=== PATIENT | male | born 1990 | race Caucasian/White ===

== ENCOUNTER 2018-03-04 18:24 | Emergency (ER) | payer OTHER ==
[~2018-03-04] VITALS: Ht 190.5 cm; Wt 130.0 kg
[2018-03-04 18:29] VITALS: BP 104/77; PULSE 80; RESP 22; TEMP 97.5; O2SAT 98
[2018-03-04 18:37] VITALS: O2SAT 100
--- NOTE | 2018-03-04 18:38 | PD ---
HPI Chief Complaint: Chest Pain Time Seen by Provider: 18:29 Travel History International Travel<30 days: No Contact w/Intl Traveler<30days: No Traveled to known affect area: No History of Present Illness HPI Patient gives a history that while he was working he developed sharp substernal chest pain had radiated to right shoulder blade area. States that the pain has been described as stabbing, sharp, 8 out of 10, sustained for the last 35 minutes and still present. She denies any aggravating or alleviating factors. Patient denies any associated factors such as fever, cough, runny nose, sore throat, rash, neck pain, back pain, flank pain or abdominal pain. Primary care is Dr. Osullivan Denies any allergies to medications States the only past surgical history is orthopedic repair to left forearm as well as tonsillectomy and adenoidectomy PFS Past Medical History Anxiety: Yes Influenza Vaccination: No Past Surgical History Oral Surgery: Yes Social History Alcohol Use: Yes (5 DRINKS FEW DAYS PER WEEK) Tobacco Use: Yes Substance Use: No Allergies-Medications (Allergen,Severity, Reaction): Coded Allergies: No Known Allergies (Unverified , 03/04/18) Reported Meds & Prescriptions Reported Meds & Active Scripts Active No Active Prescriptions or Reported Medications Review of Systems General / Constitutional: No: Fever Eyes: No: Visual changes HENT: No: Headaches Cardiovascular: Positive: Chest Pain or Discomfort Respiratory: No: Shortness of Breath Gastrointestinal: No: Abdominal Pain Genitourinary: No: Dysuria Musculoskeletal: No: Pain Skin: No Rash Neurologic: No: Weakness Psychiatric: No: Depression Endocrine: No: Polydipsia Hematologic/Lymphatic: No: Easy Bruising Physical Exam Narrative GENERAL: SKIN: Warm and dry. HEAD: Atraumatic. Normocephalic. EYES: Pupils equal and round. No scleral icterus. No injection or drainage. ENT: No nasal bleeding or discharge. Mucous membranes pink and moist. NECK: Trachea midline. No JVD. CARDIOVASCULAR: Regular rate and rhythm. RESPIRATORY: No accessory muscle use. Clear to auscultation. Breath sounds equal bilaterally. GASTROINTESTINAL: Abdomen soft, RUQ tender to percussion and palpation, nondistended. MUSCULOSKELETAL: Extremities without clubbing, cyanosis, or edema. No obvious deformities. NEUROLOGICAL: Awake and alert. No obvious cranial nerve deficits. Motor grossly within normal limits. Five out of 5 muscle strength in the arms and legs. Normal speech. PSYCHIATRIC: Appropriate mood and affect; insight and judgment normal. Data Data Last Documented VS Vital Signs Date Time Temp Pulse Resp B/P (MAP) Pulse Ox O2 Delivery O2 Flow Rate FiO2 03/04/18 19:05 18 03/04/18 19:00 66 97 Room Air 03/04/18 19:00 139/67 (91) 03/04/18 18:29 97.5 Orders Orders Electrocardiogram (03/04/18:) B-Type Natriuretic Peptide (03/04/18:33) Ckmb (Isoenzyme) Profile (03/04/18:33) Complete Blood Count With Diff (03/04/18) Comprehensive Metabolic Panel (03/04/18) D-Dimer (03/04/18:) Prothrombin Time / Inr (Pt) (03/04/18:) Act Partial Throm Time (Ptt) (03/04/18:) Troponin I (03/04/18:) Lipase (03/04/18:33) Chest, Single Ap (03/04/18:33) Ecg Monitoring (03/04/18:) Bilateral Bp Monitoring (03/04/18:) Iv Access Insert/Monitor (03/04/18) Oximetry (03/04/18:) Oxygen Administration (03/04/18:33) Sodium Chlorid 0.9% 500 Ml Inj (Ns 500 M (03/04/18 18:45) Morphine Inj (Morphine Inj) (03/04/18:45) Ondansetron Inj (Zofran Inj) (03/04/18 18:45) Ct Abd/Pel W/O Iv Contrast (03/04/18 18:39) Sodium Chloride 0.9% Flush (Ns Flush) (03/04/18:45) CKMB (03/04/18:45) CKMB% (03/04/18 18:45) Labs Laboratory Tests Test 03/04/18 18:45 White Blood Count 7.5 TH/MM3 Red Blood Count 5.05 MIL/MM3 Hemoglobin 15.9 GM/DL Hematocrit 47.7 % Mean Corpuscular Volume 94.3 FL Mean Corpuscular Hemoglobin 31.5 PG Mean Corpuscular Hemoglobin Concent 33.4 % Red Cell Distribution Width 12.4 % Platelet Count 211 TH/MM3 Mean Platelet Volume 9.8 FL Neutrophils (%) (Auto) 66.5 % Lymphocytes (%) (Auto) 22.9 % Monocytes (%) (Auto) 5.3 % Eosinophils (%) (Auto) 4.5 % Basophils (%) (Auto) 0.8 % Neutrophils # (Auto) 5.0 TH/MM3 Lymphocytes # (Auto) 1.7 TH/MM3 Monocytes # (Auto) 0.4 TH/MM3 Eosinophils # (Auto) 0.3 TH/MM3 Basophils # (Auto) 0.1 TH/MM3 CBC Comment DIFF FINAL Differential Comment Prothrombin Time 10.6 SEC Prothromb Time International Ratio 1.0 RATIO Activated Partial Thromboplast Time 27.5 SEC D-Dimer Quantitative (PE/DVT) 0.36 MG/L FEU Blood Urea Nitrogen 14 MG/DL Creatinine 1.10 MG/DL Random Glucose 94 MG/DL Total Protein 7.3 GM/DL Albumin 4.0 GM/DL Calcium Level 9.0 MG/DL Alkaline Phosphatase 87 U/L Aspartate Amino Transf (AST/SGOT) 28 U/L Alanine Aminotransferase (ALT/SGPT) 52 U/L Total Bilirubin 0.4 MG/DL Sodium Level 140 MEQ/L Potassium Level 3.8 MEQ/L Chloride Level 107 MEQ/L Carbon Dioxide Level 26.7 MEQ/L Anion Gap 6 MEQ/L Estimat Glomerular Filtration Rate 80 ML/MIN Total Creatine Kinase 367 U/L Creatine Kinase MB 3.9 NG/ML Creatine Kinase MB % 1.1 % Troponin I LESS THAN 0.02 NG/ML B-Type Natriuretic Peptide 9 PG/ML Lipase 75 U/L MDM Medical Decision Making Medical Screen Exam Complete: Yes Emergency Medical Condition: Yes Medical Record Reviewed: Yes Interpretation(s) EKG shows normal sinus rhythm, 77 bpm, normal intervals, no evidence of any STEMI pattern noted. Differential Diagnosis Atypical STEMI versus pancreatitis versus biliary colic versus hepatitis Narrative Course CBC shows no anemia, no leukocytosis, normal platelet count. No left shift Coagulation profile is within normal limits, d-dimer is negative Electrolytes are all within normal limits, normal kidney liver and pancreatic enzymes. First set of cardiac enzymes negative, negative or normal rather beta natruretic peptide Chest x-ray read by radiologist as no acute disease CT is read by radiologist as normal examination, no evidence of pulmonary Edema , pleural effusion, pericardial effusion. CT also does not show any evidence of small bowel obstruction, ileus, any free fluid any free air and no evidence of any pericholecystic fluid to suggest cholecystitis. Patient is symptom-free after receiving a small dose of morphine, he does not have any further pain. Diagnosis Primary Impression: Atypical chest pain Referrals: [facility] For further cardiac risk stratification. Patient Instructions: Chest Pain (ED), General Instructions Scripts Tramadol (Ultram) 50 Mg Tab 50 MG PO Q8H Y for PAIN, #15 TAB 0 Refills Prov: Johann Patton MD 03/04/18 Disposition: 01 DISCHARGE HOME Condition: Stable Johann Patton MD Mar 04, 2018 18:38
[2018-03-04 18:40] VITALS: BP_SYST 162; BP_SYST 178; BP_DIAS 71; BP_DIAS 78
[2018-03-04] MEDS ORDERED: SODIUM CHLORID 0.9% 500 ML INJ 500 ML IV ONE (18:45)
[2018-03-04] MEDS ORDERED: ONDANSETRON HCL 4 MG/2 ML VIAL IVP ONE (18:45)
[2018-03-04] MEDS ORDERED: MORPHINE SULFATE 4 MG/ML INJ IV PUSH ONE (18:45)
[2018-03-04] MEDS ORDERED: SODIUM CHLORIDE 0.9% FLUSH 10 ML FLUSH IV FLUSH PRN (18:45)
[2018-03-04 18:50] LABS: BASOPHIL # 0.1 TH/MM3 (0-0.2); BASOPHIL % 0.8 % (0.0-2.0); EOSINOPHIL # 0.3 TH/MM3 (0-0.4); EOSINOPHIL % 4.5 % (0.0-4.0); HEMATOCRIT 47.7 % (39.0-51.0); HEMOGLOBIN 15.9 GM/DL (13.0-17.0); LYMPH % 22.9 % (9.0-44.0); LYMPHOCYTE # 1.7 TH/MM3 (1.0-4.8); MEAN CELL VOLUME 94.3 FL (80.0-100.0); MEAN CORPUSCULAR HEMOGLOBIN 31.5 PG (27.0-34.0); MEAN CORPUSCULAR HGB CONC 33.4 % (32.0-36.0); MEAN PLATELET VOLUME 9.8 FL (7.0-11.0); MONO % 5.3 % (0.0-8.0); MONOCYTE # 0.4 TH/MM3 (0-0.9); NEUT % 66.5 % (16.0-70.0); PLATELET COUNT 211 TH/MM3 (150-450); RED BLOOD COUNT 5.05 MIL/MM3 (4.50-5.90); RED CELL DISTRIBUTION WIDTH 12.4 % (11.6-17.2); WHITE BLOOD COUNT 7.5 TH/MM3 (4.0-11.0)
[2018-03-04 18:58] LABS: CHLORIDE 107 MEQ/L (98-107); SODIUM (NA) 140 MEQ/L (136-145)
[2018-03-04 19:00] VITALS: BP 139/67; PULSE 66; RESP 18; O2SAT 97
[2018-03-04 19:02] LABS: BICARBONATE 26.7 MEQ/L (21.0-32.0); BLOOD UREA NITROGEN 14 MG/DL (7-18); GLUCOSE,RANDOM 94 MG/DL (74-106)
[2018-03-04 19:05] VITALS: RESP 18
[2018-03-04 19:05] LABS: ALT (GPT) 52 U/L (12-78); AST (GOT) 28 U/L (15-37); GLOMERULAR FILTRATION RATE 80 ML/MIN (>89); PROTHROMBIN TIME - PATIENT 10.6 SEC (9.8-11.6)
[2018-03-04 19:06] LABS: D-DIMER 0.36 MG/L FEU (0.00-0.50); TOTAL BILIRUBIN ADULT 0.4 MG/DL (0.2-1.0); TOTAL PROTEIN 7.3 GM/DL (6.4-8.2)
[2018-03-04 19:08] LABS: ALKALINE PHOSPHATASE 87 U/L (45-117)
[2018-03-04 19:10] LABS: TROPONIN I LESS THAN 0.02 NG/ML (0.02-0.05)
--- NOTE | 2018-03-04 19:15 | RADRPT ---
EXAM DATE/TIME: 03/04/2018 18:52 [facility] COMPARISON: No previous studies available for comparison. INDICATIONS : Chest pain. MEDICAL HISTORY : None. SURGICAL HISTORY : None. ENCOUNTER: Initial ACUITY: 1 day PAIN SCORE: 6/10 LOCATION: Bilateral chest FINDINGS: A single view of the chest demonstrates the lungs to be symmetrically aerated without evidence of mas s, infiltrate or effusion. The cardiomediastinal contours are unremarkable. Osseous structures are intact. CONCLUSION: No acute disease. James Jimenez MD on March 04, 2018 at 19:13 Board Certified Radiologist. This report was verified electronically.
--- NOTE | 2018-03-04 19:44 | RADRPT ---
EXAM DATE/TIME: 03/04/2018 19:21 [facility] COMPARISON: No previous studies available for comparison. INDICATIONS : Right upper quadrant and flank pain. ORAL CONTRAST: Patient refused oral contrast. RADIATION DOSE: 26.38 CTDIvol (mGy) ; Patient body habitus MEDICAL HISTORY : None SURGICAL HISTORY : None. ENCOUNTER: Initial ACUITY: 1 day PAIN SCALE: 8/10 LOCATION: Right upper quadrant flank TECHNIQUE: Volumetric scanning of the abdomen and pelvis was performed. Using automated exposure control and ad justment of the mA and/or kV according to patient size, radiation dose was kept as low as reasonably achievable to obtain optimal diagnostic quality images. DICOM format image data is available electro nically for review and comparison. FINDINGS: LOWER LUNGS: The visualized lower lungs are clear. LIVER: Homogeneous density without lesion. There is no dilation of the biliary tree. No calcified gallston es. SPLEEN: Normal size without lesion. PANCREAS: Within normal limits. KIDNEYS: Normal in size and shape. There is no mass, stone, or hydronephrosis. ADRENAL GLANDS: Within normal limits. VASCULAR: There is no aortic aneurysm. BOWEL/MESENTERY: The stomach, small bowel, and colon demonstrate no acute abnormality. There is no free intraperitone al air or fluid. ABDOMINAL WALL: Within normal limits. RETROPERITONEUM: There is no lymphadenopathy. BLADDER: No wall thickening or mass. REPRODUCTIVE: Within normal limits. INGUINAL: There is no lymphadenopathy or hernia. MUSCULOSKELETAL: Within normal limits for patient age. CONCLUSION: Normal examination. James Jimenez MD on March 04, 2018 at 19:35 Board Certified Radiologist. This report was verified electronically.
[2018-03-04] MEDS ORDERED: TRAM50 PO (20:02)
[2018-03-04 20:26] VITALS: BP 149/80
--- NOTE | 2018-03-05 16:29 | EKG ---
Date Performed: 03/04/2018 Time Performed: 18:29:01 PTAGE: 27 years EKG: Sinus rhythm NORMAL ECG NO PREVIOUS TRACING DOCTOR: Ese Leiva Interpretating Date/Time 03/05/2018 16:27:14
== END 2018-03-04 20:31 | disposition home or self-care (01) ==
LOC: PHED 18:24
DX: R07.89 Other chest pain (principal); F41.9 Anxiety disorder, unspecified; Z72.0 Tobacco use
CPT/HCPCS: 71045; 74176; 80053; 82550; 82552; 83690; 83880; 84484; 85025; 85379; 85610; 85730; 93005; 96361; 96374; 96375; 99285; J2270; J2405; J7040